=== PATIENT | male | born 1970 | race Caucasian/White ===

== ENCOUNTER 2018-06-15 10:34 | Outpatient (REF) | payer BC, SELFPAY ==
[2018-06-15 14:57] LABS: Anion Gap 12.1 mmol/L (3-11); BUN 18 mg/dL (7-18); CO2 25.9 mmol/L (21.0-32.0); CREATININE 0.67 mg/dL (0.70-1.30); Chloride 100 mmol/L (98-107); Cholesterol 164 mg/dL (50-200); Glucose 105 mg/dL (70-100); HDL Cholesterol 48 mg/dL (40-60); LDL CHOLESTEROL 95 mg/dL (<100); Potassium 4.3 mmol/L (3.5-5.1); Sodium 138 mmol/L (136-145); Triglyceride 156 mg/dL (30-150)
== END 2018-06-15 10:54 ==
LOC: LBN 10:34
PROVIDERS: PCP Internal Medicine; Visit Provider Internal Medicine
DX: I10 Essential (primary) hypertension (principal); E78.00 Pure hypercholesterolemia, unspecified
CPT/HCPCS: 80048; 80061; 83721

== ENCOUNTER 2019-03-15 10:06 | Outpatient (REF) | payer BC, SELFPAY ==
[2019-03-15 12:41] LABS: Anion Gap 12.9 mmol/L (3-11); BUN 16 mg/dL (7-18); CO2 24.1 mmol/L (21.0-32.0); CREATININE 0.66 mg/dL (0.70-1.30); Calcium 9.8 mg/dL (8.5-10.1); Chloride 100 mmol/L (98-107); Glucose 101 mg/dL (70-100); Potassium 4.4 mmol/L (3.5-5.1); Sodium 137 mmol/L (136-145)
[2019-03-15 14:27] LABS: Calculated LDL 102; Cholesterol 192 mg/dL (50-200); HDL Cholesterol 52 mg/dL (40-60); Triglyceride 190 mg/dL (30-150)
== END 2019-03-15 10:26 ==
LOC: LBN 10:06
PROVIDERS: PCP Internal Medicine; Visit Provider Internal Medicine
DX: E78.00 Pure hypercholesterolemia, unspecified (principal); I10 Essential (primary) hypertension
CPT/HCPCS: 80048; 80061; 83721

== ENCOUNTER 2019-04-23 13:53 | Emergency (ER) | payer BC, SELFPAY ==
[2019-04-23 14:02] VITALS: BP 148/72; PULSE 56; RESP 16; TEMP 36.7; O2SAT 96
[2019-04-23 15:12] LABS: Abs Immature Grans 0.05 k/cumm (0.0-0.09); Absolute Eosinophil Count 0.29 k/cumm (0.0-0.7); Absolute Lymphocyte Count 2.54 k/cumm (1.2-3.4); Absolute Monocyte Count 1.88 k/cumm (0.11-0.7); Basophils % 0.2; Eosinophils % 1.8; HGB 14.8 g/dL (13.5-17.5); Immature Grans % 0.3; Lymphocytes % 15.7; Mean Corp. HGB Concentration 34.4 g/dL (32.0-36.0); Mean Corpuscular Hemoglobin 28.6 pg (27.0-33.0); Mean Platelet Volume 8.8 fL (8.0-11.0); Monocytes % 11.6; Neutrophils % 70.4; Platelet Count 355 x1000/uL (130-400); RBC 5.18 m/cumm (4.50-6.00); RBC Distribution Width 13.7 % (11.8-14.1); White Blood Cell Count 16.19 k/cumm (4.4-10.8)
[2019-04-23 15:14] LABS: Absolute Basophil Count 0.03 k/cumm (0.0-0.2)
[2019-04-23 15:18] LABS: Bilirubin Negative (Negative); Blood Moderate (Negative); Clarity Clear (Clear); Glucose Negative (Negative); Ketones Negative (Negative); Leukocyte Esterase Negative (Negative); Nitrite Negative (Negative); Specific Gravity 1.015 (1.005-1.025); Urobilinogen 0.2 EU/dL (Up TO 0.2)
--- NOTE | 2019-04-23 15:23 | W.ED.GENAD ---
Discharge Plan Disposition Patient Disposition: HOME Condition: Stable Discharge Details Chief Complaint: Abd Prob Clinical Impression: Ureteral calculi Primary Care Provider: Juana Carroll ED Provider: Momo Caldwell Home Meds and New Rx's Prescriptions: New tamsulosin [Flomax] 0.4 mg capsule 0.4 mg PO DAILY Qty: 14 RF: 0 Continued amlodipine 2.5 mg tablet 2.5 mg PO DAILY Qty: 90 RF: 3 atorvastatin 40 mg tablet 40 mg PO DAILY Qty: 90 RF: 3 lisinopril-hydrochlorothiazide 20-12.5 mg tablet 1 tab PO DAILY Qty: 90 RF: 3 Discharge Instructions Instructions: Kidney Stones (ED) Additional Instructions: Return immediately to the emergency department for any new or significant worsening of symptoms, fever, uncontrollable vomiting or severe pain. Otherwise take your medication as prescribed, stay well-hydrated, and follow-up with urology for reassessment of your kidney stone. As far as your constipation goes you may use [id number] laxatives just take as directed on packaging along with increasing hydration. Given that you did have some CT abnormalities it is recommended that you follow-up with your primary care provider for further testing as directed by their office. Referrals: Ventura Leong MD [ [facility] STAFF PHYSICIAN] - (Follow-up as directed by their office for follow-up of your kidney stone. Call their office early next week to arrange this appointment) Juana Carroll MD [Primary Care Provider] - (For follow-up of your hepatic and renal cyst along with constipation) Discharge Data Discharge Date/Time-TO BE ENTERED AT DEPARTURE: 04/23/19 19:00 Medical Decision Making Patient presenting to the emergency department chief complaint of abdominal pain. Patient states this been going on past 3 days and he is also had some some difficulty passing stool and hard stool. Patient does state he is still passing and having bowel movements daily but seems to be more difficult. He states some mild nausea otherwise denies any vomiting fever. Physical exam shows nonspecific left sided abdominal pain, no rigidity new, no guarding, no CVA tenderness, otherwise unremarkable exam. Plan to check labs and CT imaging for concern of possible diverticulitis or other intra-abdominal pathology. Patient denies any need for pain medication at this time but patient given IV fluids pending results. Review of labs show a nonspecific leukocytosis, slightly decreased renal function with a GFR of 40, unremarkable LFTs, moderate amount of blood in the urine otherwise no signs of infection. Review of CT imaging and radiologist report shows IMPRESSION: 1. 4 mm proximal left ureteral stone with mild left hydronephrosis. 2. 2.7 cm heterogeneous lesion in the right hepatic lobe with nonspecific imaging features. Followup multiphase postgadolinium MRI of the liver is recommended for further characterization to exclude features of malignancy. 3. Hepatic and renal cysts. 4. Moderate colonic stool suggesting obstipation. Moderate diverticulosis without evidence of diverticulitis. Large prostate. I feel that the left-sided pain is more likely caused by the proximal ureteral stone. Patient was informed of the cysts and lesion noted on imaging along with the constipation and that he should follow-up with primary care in regards to these findings as he may need more testing. Return precautions were discussed, patient placed on Flomax to aid in stone passage and patient otherwise recommended to take acetaminophen or ibuprofen for pain control. Return precautions discussed after discussion of diagnosis and plan of care patient has no further needs, questions, or concerns and states clear understanding to return to the emergency department for any worsening symptoms.. HPI General Mode of arrival: ambulatory. Date/Time Provider Initiated Documentation: 04/23/19 15:12. Limitations to Documentation: no limitations. Information obtained by: patient and RN notes reviewed. History of Present Illness 48 year old M presents to the emergency department with the chief complaint of abd pain, constipation, described as mild, with intensity rated at 4. Quality is described as aching, and is localized to the abdomen. Patient started experiencing this day(s) and it has been constant. No relieving factors improve symptom(s), No exacerbating factors reported . Patient did receive the following treatments prior to arrival, other (Dulcolax) Related Data Home Medications Medication Instructions Recorded Confirmed amlodipine 2.5 mg tablet 2.5 mg PO DAILY #90 tab-cap 06/15/18 04/23/19 atorvastatin 40 mg tablet 40 mg PO DAILY #90 tab-cap 06/15/18 04/23/19 lisinopril 20 1 tab PO DAILY #90 tab-cap 06/15/18 04/23/19 mg-hydrochlorothiazide 12.5 mg tablet tamsulosin [Flomax] 0.4 mg PO DAILY #14 cap 04/23/19 Previous Rx's Medication Instructions Recorded amlodipine 2.5 mg tablet 2.5 mg PO DAILY #90 tab-cap 06/15/18 atorvastatin 40 mg tablet 40 mg PO DAILY #90 tab-cap 06/15/18 lisinopril 20 1 tab PO DAILY #90 tab-cap 06/15/18 mg-hydrochlorothiazide 12.5 mg tablet tamsulosin [Flomax] 0.4 mg PO DAILY #14 cap 04/23/19 Allergies Allergy/AdvReac Type Severity Reaction Status Date / Time No Known Allergies Allergy Verified 04/23/19 14:06 General Stated Complaint: Abd Prob MANISHA: 3 Review of Systems Constitutional Denies body ache(s), Denies chills and Denies fever(s) Cardiovascular Denies chest pain and Denies dyspnea Respiratory Denies dyspnea Gastrointestinal Denies abdominal pain, Denies melena, Reports bloating, Reports constipation, Reports nausea and Denies vomiting PFSH Medical History High blood pressure (Chronic) High cholesterol (Chronic) Surgical History Appendectomy (~1985) Family History Mother Essential hypertension Sister Essential hypertension Brother Essential hypertension Father No problems noted. 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 Pets and animals: Yes Current gender identity: male What is your relationship status?: Panel score (0-1 are the most socially isolated patients): 1 What type of physical activity do you participate in: walking and other Details: physically active with his job Seatbelt use: always Drive intox or ride w/intox 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 Working smoke detector in home: Yes Fire extinguisher in home: Yes Carbon monox detector in home: Yes Additional Social history: pt is not alone to assess privately Exam Const General: cooperative, no acute distress and not ill appearing Orientation: alert, awake and oriented x3 HENMT Mouth: moist mucous membranes Resp Effort & Inspection: normal respiratory effort, able to speak in complete sentences and no respiratory distress Cardio Rate: regular rate Rhythm: regular rhythm Heart Sounds: S1 normal and S2 normal GI Inspection: normal to inspection Palpation: soft, no hepatosplenomegaly, not firm, no guarding, no hepatomegaly, no hernias, no masses, not rigid and tender in the LUQ Auscultation: normal bowel sounds Back/Spine/Pelvis Back: no CVA tenderness Skin General skin exam: no rashes or lesions noted Neuro General: alert, awake, oriented x3, moves all extremities and no focal motor deficits Sensory Exam: no sensory deficits noted Course Vital Signs Temperature 36.7 C 04/23/19 14:02 Pulse 56 L 04/23/19 14:02 Respiratory Rate 16 04/23/19 14:02 Blood Pressure 148/72 H 04/23/19 14:02 Pulse Oximetry 96 04/23/19 14:02 Temperature 36.7 C 04/23/19 14:02 Temperature Source Skin 04/23/19 14:02 Pulse 56 L 04/23/19 14:02 Respiratory Rate 16 04/23/19 14:02 Respiratory Effort Non-Labored 04/23/19 14:05 Blood Pressure 148/72 H 04/23/19 14:02 Pulse Oximetry 96 04/23/19 14:02 Pain Level 7 04/23/19 14:02 Lab/Test Results Lab/Test Results: Laboratory Tests Range/Units 04/23/19 15:04 Urine Color (Yellow) Yellow Urine Clarity (Clear) Clear Urine pH (5-8) 6.0 Ur Specific [place] (1.005-1.025) 1.015 Urine Protein (Negative) mg/dL Negative Urine Ketones (Negative) mg/dL Negative Urine Blood (Negative) Moderate H Urine Nitrite (Negative) Negative Urine Bilirubin (Negative) Negative Urine Urobilinogen (Up TO 0.2) EU/dL 0.2 Ur Leukocyte Esterase (Negative) Negative Urine Glucose (Negative) mg/dL Negative
[2019-04-23 15:26] LABS: Bacteria Negative HPF (Negative); C & S Indicated? No; Casts Negative LPF (Negative); Crystals Negative HPF (Negative); Epithelial Cells Rare HPF (Negative); Mucus Negative (Negative); WBC 0-2 HPF (0-5)
[2019-04-23 15:29] LABS: ALT 27 U/L (12-78); AST 14 U/L (15-37); Albumin 4.3 g/dL (3.4-5.0); Alkaline Phosphatase 85 U/L (46-116); Anion Gap 8.7 mmol/L (3-11); BUN 28 mg/dL (7-18); Bilirubin, Direct 0.08 mg/dL (0.00-0.20); Bilirubin, Total 0.5 mg/dL (0.2-1.0); CO2 28.3 mmol/L (21.0-32.0); CREATININE 1.77 mg/dL (0.70-1.30); Chloride 100 mmol/L (98-107); Estimated GFR 40.92 (mL/min/1.73m2); Glucose 91 mg/dL (70-100); Lipase 389 U/L (73-393); Magnesium 2.2 mg/dL (1.8-2.4); Potassium 4.1 mmol/L (3.5-5.1); Sodium 137 mmol/L (136-145); Total Protein 8.3 g/dL (6.4-8.2)
[2019-04-23 15:30] LABS: Diff Comment Diff Reviewed; RBC Morphology Normal
[2019-04-23 15:31] LABS: Troponin I < 0.05 ng/mL (0.00-0.06)
[2019-04-23] MEDS: Normal Saline 1,000 ML 1000 ML IV ×2 (16:03→17:55)
[2019-04-23] MEDS: Omnipaque 350 MG/ML 100 ML BTL IJ (17:33)
[2019-04-23] MEDS: Normal Saline Flush 10 ML SYR IVP (17:34)
--- NOTE | 2019-04-23 17:40 | DI.CT_ITS ---
SYMPTOMS/DIAGNOSIS: LEFT-SIDED ABDOMINAL PAIN CT OF THE ABDOMEN AND PELVIS: There are no prior comparison exams. Images were performed from the lung bases through the ischial tuberosities after oral and IV contrast. There is a 4 mm stone seen in the proximal left ureter causing mild hydronephrosis. There is mild delay in the left nephrogram. There is no perinephric collection. No additional urinary tract calculi are identified. There are multiple bilateral renal cysts. The bladder and prostate are unremarkable. The lung bases are clear. The liver shows mild overall fatty infiltration. There is a low density lesion in the inferior right lobe of the liver, which does not have the typical appearance of a cyst. It may represent a hemangioma. The spleen, adrenals and pancreas are unremarkable. There is diverticulosis seen in the majority of the colon, but no evidence of diverticulitis. There is no small bowel dilatation. The patient is status post appendectomy. The aorta shows mild calcification and is normal in diameter. There are degenerative changes in the spine, greatest at L4-5. IMPRESSION: 1. Mild to moderate left hydronephrosis secondary to a 4 mm proximal ureteral stone. 2. Low density lesion in the right lobe of the liver. A multiphase CT or MRI following IV gadolinium could be performed for further evaluation.
--- NOTE | 2019-04-23 18:28 | DI.VRAD_ITS ---
EXAM: CT Abdomen and Pelvis With Contrast EXAM DATE/TIME: 04/23/2019 3:21 PM CLINICAL HISTORY: 48 years old, male; Other: Left sided abd pain; Prior surgery; Surgery date: 6+ months; Surgery type: Appendectomy TECHNIQUE: Imaging protocol: Axial computed tomography images of the abdomen and pelvis with intravenous contrast. Coronal and sagittal reformatted images were created and reviewed. Radiation optimization: All CT scans at this facility use at least one of these dose optimization techniques: automated exposure control; mA and/or kV adjustment per patient size (includes targeted exams where dose is matched to clinical indication); or iterative reconstruction. Contrast material: OMNIPAQUE 350;Contrast volume: 100 ml;Contrast route: IV; COMPARISON: No relevant prior studies available. FINDINGS: Lungs: Visualized lung bases are clear. Heart: Heart size normal. Liver: There are 4 low-density well-circumscribed liver lesions which are hypodense and nonenhancing, demonstrating benign features. There is a larger lesion in the right hepatic lobe which is nonspecific. It demonstrates heterogeneous density and measures 2.7 x 1.9 x 1.3 cm. Question lobular elements of internal enhancement. Further assessment with multiphase post gadolinium MRI of the liver is recommended to exclude features of malignancy. Gallbladder and bile ducts: The gallbladder is largely contracted but otherwise unremarkable. Nondilated biliary system. Pancreas: Normal. No inflammatory changes or ductal dilation. Spleen: Normal. No splenomegaly. Adrenals: Normal. No adrenal mass. Kidneys and ureters: Multiple bilateral simple renal cysts. There is mild bilateral perinephric stranding which is slightly greater on the left, with mild left-sided caliectasis and proximal ureterectasis. 4 mm left proximal ureteral stone on series 4 image 53. Stomach and bowel: The visualized distal esophagus and stomach are normal. The small bowel is normal with no evidence of obstruction. There is a moderate amount of stool and gas distributed throughout the colon suggesting constipation. Moderate diverticulosis involving the distal colon with no evidence of diverticulitis. Appendix: The appendix is not identified. No secondary signs of appendicitis. Intraperitoneal space: No free fluid or air. Vasculature: Mild atherosclerotic aortoiliac calcification without aneurysm. Lymph nodes: No adenopathy. Bladder: Unremarkable as visualized. Reproductive: Large prostate measuring 5 cm transverse. Bones/joints: No acute osseous abnormalities. Soft tissues: Unremarkable. IMPRESSION: 1. 4 mm proximal left ureteral stone with mild left hydronephrosis. 2. 2.7 cm heterogeneous lesion in the right hepatic lobe with nonspecific imaging features. Followup multiphase postgadolinium MRI of the liver is recommended for further characterization to exclude features of malignancy. 3. Hepatic and renal cysts. 4. Moderate colonic stool suggesting obstipation. Moderate diverticulosis without evidence of diverticulitis. Large prostate. Dictated and Authenticated by: Genaro Lopez MD. Ordering:MYRON Barr MD
[2019-04-23] MEDS: Tamsulosin 0.4 MG CAPCR PO (18:56)
[2019-04-23 18:57] VITALS: BP 156/94; PULSE 87; RESP 16
--- NOTE | 2019-04-23 20:06 | NUR.NOTE ---
faxed referal to 04/23/19Nursing Note:
== END 2019-04-23 19:00 | disposition home or self-care (01) ==
PROVIDERS: Emergency Provider Nurse Practitioner Family; PCP Internal Medicine
DX: N13.2 Hydronephrosis with renal and ureteral calculous obstruction (principal); K59.00 Constipation, unspecified; N28.1 Cyst of kidney, acquired; K76.89 Other specified diseases of liver
CPT/HCPCS: 36415; 80053; 80076; 83690; 96360; 96361; 99285; 74177; 81003; 81015; 83735; 84484; 85025; 99284; J3490

== ENCOUNTER 2020-05-30 09:33 | Outpatient (REF) | payer BC, SELFPAY ==
[2020-05-30 19:32] LABS: Anion Gap 4.3 mmol/L (3-11); BUN 18 mg/dL (7-18); CO2 27.7 mmol/L (21.0-32.0); CREATININE 0.73 mg/dL (0.70-1.30); Calcium 9.3 mg/dL (8.5-10.1); Calculated LDL 109 mg/dL (<100); Chloride 99 mmol/L (98-107); Cholesterol 213 mg/dL (<200); Glucose 109 mg/dL (74-106); HDL Cholesterol 45 mg/dL (40-60); Potassium 4.4 mmol/L (3.5-5.1); Sodium 131 mmol/L (136-145); Triglyceride 296 mg/dL (<150)
== END 2020-05-30 09:53 ==
LOC: LBO 09:33
PROVIDERS: PCP Internal Medicine; Referring Provider Internal Medicine; Visit Provider Internal Medicine
DX: E78.00 Pure hypercholesterolemia, unspecified (principal); I10 Essential (primary) hypertension
CPT/HCPCS: 80048; 80061